=== PATIENT | female | born 1990 | race Two or more races ===

== ENCOUNTER 2018-11-07 11:20 | Outpatient (CLI) | payer OTHER | END 2018-11-07 11:36 | disposition home or self-care (01) | LOC: SONOGRAMA 11:20 | DX: N84.0 Polyp of corpus uteri (principal) ==

== ENCOUNTER 2019-02-13 04:58 | Day surgery (SDC) | payer OTHER ==
[2019-02-13] MEDS ORDERED: MORGIDOX100 MG PO (10:30)
[2019-02-13] MEDS ORDERED: Tylenol #3 PO (10:30)
== END 2019-02-13 11:35 | disposition home or self-care (01) ==
LOC: CIR.AMB 04:58
DX: N84.0 Polyp of corpus uteri (principal); D25.0 Submucous leiomyoma of uterus

== ENCOUNTER 2023-07-17 15:53 | Emergency (ER) | payer OTHER ==
[~2023-07-17] VITALS: Ht 160 cm; Wt 54.4 kg
[~2023-07-17 15:53] MED LIST: MORGIDOX100 MG PO; Tylenol #3 PO
[2023-07-17] MEDS ORDERED: 0.9 % SODIUM CHLORIDE 1,000 ML IV STA (18:38)
[2023-07-17] MEDS ORDERED: ONDANSETRON HCL 2 MG/ML VIAL IM STA (18:39)
[2023-07-17] MEDS ORDERED: FAMOTIDINE/PF 20 MG/2 ML VIAL IV STA (18:39)
[2023-07-17 19:25] LABS: HEMATOCRIT 41.8 % (36.0-45.00); HEMOGLOBIN 14.6 g/dL (12.0-15.00); MEAN CELL VOLUME 89.4 fL (80.00-100.00); MEAN CORPUSCULAR HEMOGLOBIN 31.3 pg (27.00-32.0); PLATELET COUNT 182 K/uL (150-450); RED BLOOD COUNT 4.67 M/uL (4.00-6.00); RED CELL DISTRIBUTION WIDTH 12.7 % (11.5-14.5)
[2023-07-17 19:28] LABS: URINE APPEARANCE Clear; URINE BILIRRUBIN Negative (NEGATIVE); URINE BLOOD Negative; URINE COLOR Dark Yellow; URINE GLUCOSE Negative (NEGATIVE); URINE LEUKOCYTE Negative; URINE NITRATE Negative
[2023-07-17 19:31] LABS: URINE BACTERIA 2788.1 uL (0.0-1933); URINE EPITHELIAL CELLS 11.1 uL (0.0-38.8); URINE RBC 38.9 uL (0.0-20.8); URINE WBC 12.8 uL (0.0-23.2)
[2023-07-17 19:32] LABS: URINE PROTEIN 100 (NEGATIVE)
[2023-07-17 19:52] LABS: ALBUMIN 3.7 gm/dL (3.4-5.0); BILIRUBIN TOTAL 0.43 mg/dL (0.3-1.2); CALCIUM 9.3 mg/dL (8.5-10.1); CREATININE SERUM 0.71 mg/dL (0.55-1.02); GFR 94.23; GLOBULINA 4.7 G/DL (2.4-3.5); POTASSIUM 4.22 mEq/L (3.5-5.1); TOTAL PROTEIN 8.4 gm/dL (6.4-8.2)
[2023-07-18] MEDS ORDERED: ONDANSETRON HCL 2 MG/ML VIAL IV STA (00:08)
== END 2023-07-18 00:54 | disposition home or self-care (01) ==
LOC: ER 15:54
PROVIDERS: General Practice
DX: E86.0 Dehydration (principal); R50.9 Fever, unspecified; R10.32 Left lower quadrant pain; R11.10 Vomiting, unspecified